=== PATIENT | female | born 2005 | race Caucasian/White ===

== ENCOUNTER 2025-02-20 06:07 | Emergency (ER) | payer BC, SELFPAY ==
[2025-02-20 06:15] VITALS: BP 125/76; PULSE 58; RESP 16; TEMP 37; O2SAT 97; O2SAT 99
[2025-02-20 06:16] VITALS: BP 125/76; O2SAT 97
--- NOTE | 2025-02-20 06:21 | ED.NAVMDI ---
HPI - Nausea/Vomiting/Diarrhea General Chief complaint: Nausea/Vomiting/Diarrhea Stated complaint: n/v after wisdom teeth removal on 02/18 Time Seen by Provider: 02/20/25 06:30 History of Present Illness HPI Narrative: 19-year-old healthy female presenting 2 days post wisdom teeth extraction with nausea, vomiting and suspected medication side effect. She was prescribed tramadol 50 mg q.6 hours which she has been taking on top of Tylenol and ibuprofen. She thinks the tramadol is causing her feel nauseous and having upset stomach. She has vomited several times but having no abdominal pain. States that she is on a soft diet after the wisdom teeth and her pain is actually well controlled she just feels nauseous at this time. No other symptoms. No fever, chills. No traumatic injuries. Was otherwise in her normal state of health. Patient states she has never had Ultram or strong pain medicines before and did not get any medications for nausea. Related Data Allergies Allergy/AdvReac Type Severity Reaction Status Date / Time No Known Allergies Allergy Verified 02/20/25 06:20 Review of Systems Review of Systems: As reviewed above in HPI All systems reviewed & are unremarkable except as noted in HPI and below Exam Narrative: GENERAL: [Well-appearing, well-nourished, and in no acute distress.] HEAD: [Normocephalic, atraumatic.] EYES: [PERRLA and EOMI.] ENT: Nares clear, no rhinorrhea or epistaxis. Status post extraction of wisdom teeth, areas appear well healing, no erythema, purulence or bleeding. NECK: Supple. CHEST: No respiratory distress ABDOMEN: Nondistended EXTREMITIES: Normal range of motion. [No edema.] SKIN: Warm, dry, no rash. NEURO: [No focal deficits]. Alert and oriented [x3.] PSYCH: [Normal mood and affect.] Course Vital Signs Vital signs: Vital Signs Temperature 37.0 C 02/20/25 06:15 Pulse Rate 58 L 02/20/25 06:15 Respiratory Rate 16 02/20/25 06:15 Blood Pressure 125/76 02/20/25 06:15 Pulse Oximetry 99 02/20/25 06:15 Oxygen Delivery Room Air 02/20/25 06:15 Temperature 37.0 C 02/20/25 06:15 Pulse Rate 65 02/20/25 07:33 Respiratory Rate 17 02/20/25 07:33 Blood Pressure 123/70 02/20/25 07:33 Pulse Oximetry 97 02/20/25 07:33 Oxygen Delivery Room Air 02/20/25 06:15 [facility] Narrative Medical decision making narrative: 19-year-old healthy female presenting 2 days post wisdom teeth extraction with nausea, vomiting and suspected medication side effect. She was prescribed tramadol 50 mg q.6 hours which she has been taking on top of Tylenol and ibuprofen. She thinks the tramadol is causing her feel nauseous and having upset stomach. She has vomited several times but having no abdominal pain. States that she is on a soft diet after the wisdom teeth and her pain is actually well controlled she just feels nauseous at this time. No other symptoms. No fever, chills. No traumatic injuries. Was otherwise in her normal state of health. Patient states she has never had Ultram or strong pain medicines before and did not get any medications for nausea. Patient is well-appearing in no distress. Normal vital signs. No fever tachycardia. Dental sites appear well healing. Pain is controlled. Likely medication side effect verses GI upset from viral gastroenteritis less likely. Will give her IV fluids and Zofran as well as some basic laboratory studies being obtained. These labs are unremarkable. She felt better after fluids and Zofran will be prescribed Zofran and instructed cut down on her tramadol dose or omitted entirely for pain is controlled with Tylenol and ibuprofen. Safe for discharge with follow-up as needed. Differential Diagnosis Differential Diagnosis: Likely medication side effect verses GI upset from viral gastroenteritis less likely. Lab Data [facility] Lab Attestation statement: I personally reviewed the patient's lab results. 02/20/25 06:32 02/20/25 06:32 Labs: Lab Results 02/20/25 Range/Units 06:32 WBC 11.8 H (4.5-10.0) K/mm3 RBC 4.41 (4.2-5.4) M/mm3 Hgb 13.4 (12.0-15.0) g/dL Hct 39.2 (37.0-47.0) % MCV 88.9 (80-100) fl MCH 30.4 (26-34) pg MCHC 34.2 (32-36) g/dl RDW 12.6 (11.5-14.5) % Plt Count 271 (150-375) k/mm3 MPV 8.8 (7.4-10.4) fl Immature Gran % (Auto) 0.5 (0-0.5) % Neut % (Auto) 82.2 H (45.5-73.1) % Lymph % (Auto) 12.3 L (18.3-44.2) % [place] % (Auto) 4.1 (2.6-8.5) % Eos % (Auto) 0.5 (0-4.4) % Baso % (Auto) 0.4 (0.2-1.2) % Lymph # (Auto) 1.45 (0.9-3.2) K/mm3 [place] # (Auto) 0.5 (0.1-0.6) K/mm3 Eos # (Auto) 0.1 (0-0.3) K/mm3 Baso # (Auto) 0.1 (0.0-0.1) K/mm3 Abs Immat Gran (auto) 0.06 H (0.00-0.031) K/mm3 Absolute Neuts (auto) 9.7 H (1.3-6.7) K/mm3 Absolute Nucleated RBC 0.000 (0.0-0.012) K/mm3 Nucleated RBC % 0.0 (0.0-0.2) % Sodium 137 (137-145) mmol/L Potassium 3.6 (3.4-5.0) mmol/L Chloride 105 (98-107) mmol/L Carbon Dioxide 21 L (22-30) mmol/L Anion Gap 11 (4-12) mmol/L BUN 11 (7-17) mg/dL Creatinine 0.83 (0.7-1.0) mg/dL Estim Creat Clear Calc 84 ml/min Estimated GFR > 60 (59 - ) Glucose 114 H (65-110) mg/dL Calcium 9.3 (8.4-10.2) mg/dL Discharge Plan Discharge Clinical Impression: Drug-induced nausea and vomiting Patient Disposition: Home Condition: Stable Instructions: Antibiotic Form Additional Instructions: Symptoms consistent with medication induced nausea and vomiting from the high-dose Ultram every 6 hours. Would recommend cutting down this dose to half a tablet every 6 hours or spaced out even further or if tolerating pain can just use Tylenol and ibuprofen. We have prescribed you Zofran as needed. Return wity any emergent concerns. Patient Language: Thai Prescriptions: New ondansetron 4 mg tablet,disintegrating 4 mg PO Q8H PRN (Reason: nausea and vomiting) Qty: 20 0RF ondansetron 4 mg tablet,disintegrating 4 mg PO Q8H PRN (Reason: nausea and vomiting) Qty: 20 0RF Follow-up/Referrals: NON-NURSING STAFF,ADMISSIONS [Nursing Provider Deficiency, Nursing] Time of Disposition: 07:06
[2025-02-20 06:30] VITALS: PULSE 49; RESP 11; O2SAT 100
[2025-02-20 06:31] VITALS: BP 116/63; PULSE 43; RESP 9; O2SAT 100
[2025-02-20] MEDS: DEXTROSE 5%/LACTATED RINGERS 1,000 ML 1000 ML IV CONT (06:31)
[2025-02-20] MEDS: ONDANSETRON INJ 4 MG/2 ML VIAL IV PUSH (06:31)
[2025-02-20 06:40] LABS: Hematocrit 39.2 % (37.0-47.0); Hemoglobin 13.4 g/dL (12.0-15.0); Immature Granulocyte Percent A 0.5 % (0-0.5); Lymphocytes Absolute Auto 1.45 K/mm3 (0.9-3.2); Mean Corpuscular HGB Conc 34.2 g/dl (32-36); Mean Corpuscular Hemoglobin 30.4 pg (26-34); Mean Corpuscular Volume 88.9 fl (80-100); Nucleated Red Blood Cells Absolute Auto 0.000 K/mm3 (0.0-0.012); Nucleated Red Blood Cells Perc 0.0 % (0.0-0.2); Platelet Count Result 271 k/mm3 (150-375); Red Blood Count 4.41 M/mm3 (4.2-5.4); White Blood Count 11.8 K/mm3 (4.5-10.0)
--- OUTSIDE RECORDS SUMMARY | 2025-02-20 06:52 | XMS_ITS | Clinical Summary ---
Author Organization [facility] Address [address] [place] [id number] Care Team Providers Care Mounter Flutes And Piccolos Name Role Phone Kenya Lincoln Primary Care Provider [phone] Allergies No known active allergies Medications busPIRone (BUSPAR) 5 MG tabletIndicatio ns:Anxiety Take 1 tablet (5 mg total) by mouth 2 (two) times daily. 180 tablet 3 11/05/2024 Active norethindrone-e thinyl estradiol (BLISOVI FE 03/25) 1-20 MG-MCG tabletIndicatio ns:Dysmenorrhea ,Menorrhagia with irregular cycle TAKE 1 TABLET BY MOUTH DAILY. SKIP PLACEBO 84 tablet 3 12/10/2024 Active Active Problems Problem Noted Date Diagnosed Date Adult BMI 25.0-25.9 kg/sq m 10/22/2024 Anxiety 10/28/2019 Dysmenorrhea 10/07/2018 Menorrhagia with irregular cycle 10/07/2018 Resolved Problems Problem Noted Date Diagnosed Date Resolved Date Need for HPV vaccination 01/16/2020 Need for Menactra vaccination 10/28/2019 11/15/2019 Sports physical 10/07/2018 10/22/2024 BMI pediatric, 5th percentil e to less than 85% for age 0810/07/2018 10/22/2024 Encounters Date Type Department Care Team Description 12/09/2024 Results Follow-Up [facility] [address] [address] Kenya Lincoln FNP Cytopath Cerv/Vag Thin Layer, HUMAN PAPILLOMAVIRUS, HIGH-RISK TYPES 12/02/2024 9:52 AM CDT - 12/02/2024 11:59 PM CDT Hospital Encounter [facility] [address] [place] [address] Kenya Lincoln FNP Discharge Disposition: Home or Self Care (Routine Discharge) 12/02/2024 9:00 AM CDT Office Visit [facility] Family [facility] Internal Medicine [address] [address] Kenya Lincoln FNP Gold Leaf Printer Exam (Patient presenting to the office today for CRISIS CLINICIAN exam- reports this is her first PAP - ) 12/02/2024 Travel from Last 3 Months Immunizations Immunization Administration Dates Next Due HPV GARDASIL 9-VALENT 10/22/2024,10/28/2019,09/05 Meningococcal (Menactra) 12/21/2020,10/28/2019 PFIZER COVID-19 (ORIGINAL FO RMULATION, PURPLE CAP) mRNA, LNP-S, PF, 30 MCG/0.3 ML DOSE 07/03/2020 Tdap (Adacel) 10/22/2024 Family History Medical History Relation Comments Drug Abuse Father Hypertension Father Heart Maternal Grandfather No Known Problems Mother Relation Status Comments Father Maternal Grandfather Mother Alive Social History Tobacco Use Types Packs/Day Years Used Date Smoking Tobacco: Never Smokeless Tobacco: Never Tobacco Cessation:Counseling Given: Not Answered Alcohol Use Standard Drinks/Week Comments No 0 (1 standard drink = 0.6 oz pur e alcohol) AUDIT-C Answer Date Recorded Frequency of Alcohol Consumption Never 10/02/2018 Average Number of Drinks Not on file 019 Frequency of Binge Drinking Not on file 09/05 PHQ-2 Answer Date Recorded Patient Health Questionnaire-2 Score 0 10/22/2024 Comments No Sex and Gender Information Value Date Recorded Sex Assigned at Female 10/12/2023 3:40 PM CDT Legal Sex Female 9:20 AM CDT Gender Identity Female 10/12/2023 3:40 PM CDT Sexual Orientation Straight 10/12/2023 3: 40 PM CDT Last Filed Vital Signs Vital Sign Reading Time Taken Comments Blood Pressure 102/70 12/02/2024 9:06 AM CDT Pulse 71 12/02/2024 9:06 AM CDT Temperature 36.6 C (97.9 F) 12/02/2024 9:06 AM CDT Respiratory Rate 16 12/02/2024 9:06 AM CDT Oxygen Saturation 99% 12/02/2024 9:06 AM CDT Inhaled Oxygen Concentration - - Weight 67.1 kg (147 lb 14.4 oz) 12/02/2024 9:06 AM CDT Height 165.1 cm (5' 5) 12/02/2024 9:06 AM CDT Body Mass Index 24.61 12/02/2024 9:06 AM CDT Plan of Treatment Health Maintenance Due Date Last Done Comments Hepatitis C 2021 Hepatitis B Vaccines (1 of 3 - 19+ 3-dose series) 2022 Influenza Adult (#1) 2024 Chlamydia Screening Females ages 16-24 10/22/2025 Postponed from 03/13 (Patient Refused) Meningococcal B Vaccine (1 o f 2 - Standard) 10/22/2025 Postponed from 03/13 (Future Appointment) Annual Physical 12/02/2025 12/02/2024, 10/28/2019, 10/02/2018 COVID-19 Vaccine (3 - 2024-2 6 season) 2025 07/03/2020, 06/04/2020 Postponed from 11/04/2024 (Future Appointment) Cervical Cancer Screening Pa p Smear (Age 21 to 29) Every 3 Years 12/03/2027 12/02/2024, 12/02/2024 Cervical Cancer Screening 12/03/2027 DTaP, Tdap and Td Vaccines ( 2 - Td or Tdap) 10/22/2034 10/22/2024 Meningococcal Vaccine Completed 12/21/2020 , 10/28/2019 HPV Vaccines Completed 10/22/2024, 10/28/2019, 10/02/2018 PHQ-2 (Physician [place]) Completed 10/22/2024 Hepatitis A Vaccines Aged Out No long er eligible based on patient's age to complete this topic Pneumococcal Vaccine: Pediatrics (0 to 5 Years) and At-Risk Patients (6 to 49 Years) Aged Out No longer eligible b ased on patient's age to complete this topic RSV Immunizations Under 20 Months Aged Out No longer eligible b ased on patient's age to complete this topic Procedures Procedure Name Priority Date/Time Associated Diagnosis Comments HC HPV AMP Routine 12/02/2024 12:00 PM CDT CYTOPATH CERV/VAG THIN LAYER Routine 12/02/2024 12:00 AM CDT Well woman exam with routine gynecological exam Encounter for Papanicolaou smear for cervical cancer screening from Last 3 Months Results * HUMAN PAPILLOMAVIRUS, HIGH-RISK TYPES (12/02/2024 12:00 PM CDT) SPEC DESCRIPTION CERVIX 12/04/19 11:42 AM CDT [facility] HPV DNA HIGH RISK NEGATIVE NEGATIVE 12/04/2024 10:49 AM CDT [facility] Comment:SEE CYTOLOGY REPORT 12/02/2024 12:0 0 PM CDT us Kenya ZIEGLER PATHOLOGY/CYTOLOGY ORDERABLES Final Result [facility] [address] [place] [address], * Cytopath Cerv/Vag Thin Layer (12/02/2024 12:00 AM CDT) THIN PREP PAP [facility] [address] [place] [address] Department of Pathology Pathology Report CERVICAL/VAGINAL PAP SMEAR REPORT Name: BOUCHRA ALEJANDRO Age: 1 2005 (Age: 19) Location: [facility] Sex: F Collected Date: 12/02/2024 [facility] #: [id number] Date Received: 12/03/2024 Date Reported: 12/09/2024 Provider: KENYA SUAREZP-C INTERPRETATION CERVICAL/ENDOCERVI GENE: SATISFACTORY FOR EVALUATION. ENDOCERVICAL/TRANS FORMATION ZONE COMPONENT PRESENT. NEGATIVE FOR INTRAEPITHELIAL LESION OR MALIGNANCY. NEGATIVE FOR HIGH RISK HPV. The FDA approved Aptima HPV assay is an in vitro nucleic acid amplification test for the qualitative detection of E6/E7 viral messenger RNA (mRNA) from 14 high-risk types of human papillomavirus (HPV) in cervical specimens. The high-risk HPV types detected by the assay include: 16,18,31,33,35,39, 45,51,52,56,58,59, 66, and 68. Electronically Signed Out By TRANG Rhoades (ASCP) CLINICAL HISTORY Z01.419 WELL WOMAN EXAM WITH ROUTINE GYNECOLOGICAL EXAM Z12.4 ENCOUNTER FOR PAPANICOLAOU SMEAR FOR CERVICAL CANCER SCREENING SCREENING PAP ThinPrep Pap Test with HR HPV testing requested. Date of Last Menstrual Period: NOT GIVEN Menstrual Status: Menstrual Suppression Contraceptive History: Control SPECIMEN SUBMITTED CERVICAL/ENDOCERVI GENE Specimen Received:1 Thin Prep Vial, Image Assisted Pap (SMD) Please note: The Pap smear is not a diagnostic test. It is a screening test. Negative results on combined screening (Pap test and HPV-DNA) have a high negative predictive value (99.1-100 percent) for cervical cancer. The pap test is not effective in detecting cervical adenocarcinoma. [facility] 12/02/2024 12/03/2024 10: 18 AM CDT Comment:CERVICAL/ENDOCERVICA L Kenya ZIEGLER PATHOLOGY/CYTOLOGY ORDERABLES Final Result Performing Organization Address City/State/[facility] Co de Phone Number [facility] [address] [place] [address], from Last 3 Months Insurance [facility] Care Teams Mounter Flutes And Piccolos Relationship Specialty Start Date End Date Kenya Lincoln FNP [address] [place] [address] [phone] PCP - General Nurse Practitioner Family 10/02/18
--- OUTSIDE RECORDS SUMMARY | 2025-02-20 06:52 | XMS_ITS | Clinical Summary ---
Author Organization [facility] [employer] Address [address] [place] [address] Care Team Providers Care Sales Manager Name Role Phone Danii Lincoln APRN-BIOLOGICS SPECIALIST Primary Care Provider [phone] [facility],non-owned Affiliates and Associated Physician Practices is amultiple site organization consisting of ambulatory clinics and hospital sitesin [place], [place], [place] and [place]. This disclosure is being madepursuant to the Care Everywhere program and may not contain all information available regarding this patient. Last updated 17.[facility] [employer] Allergies No known active allergies Medications * Be aware that medications may not be up to date on this document. Alwaysverify current medications with the patient. busPIRone (BUSPAR) 5 MG tablet Take 5 mg by mouth 2 times daily 01/16/2020 Active norethin-eth estradiol-FE (LOESTRIN FE 03/25; JUNEL FE 03/25; MICROGESTIN FE 03/25) 1-20 MG-MCG tablet Take 1 tablet by mouth once daily 01/16/2020 Active Active Problems No known active problems Social History Tobacco Use Types Packs/Day Years Used Date Smoking Tobacco: Never Smokeless Tobacco: Never Alcohol Use Standard Drinks/Week Comments Never 0 (1 standard drink = 0.6 oz pur e alcohol) Comments No Sex and Gender Information Value Date Recorded Sex Assigned at Not on file Legal Sex Female 10:38 AM DISABILITY REPRESENTATIVE Gender Identity Not on file Sexual Orientation Not on file Last Filed Vital Signs Vital Sign Reading Time Taken Comments Blood Pressure 118/64 08/12/2020 11:21 AM CDT Pulse 78 08/12/2020 11:21 AM CDT Temperature 36.5 C (97.7 F) 08/12/2020 11:21 AM CDT Respiratory Rate 16 08/12/2020 11:21 AM CDT Oxygen Saturation 99% 04/28/2020 4:39 PM DISABILITY REPRESENTATIVE Inhaled Oxygen Concentration - - Weight 56.7 kg (125 lb) 09/22/2020 2:14 PM CDT Height 165.1 cm (5' 5) 09/22/2020 2:14 PM CDT Body Mass Index 20.8 09/22/2020 2:14 PM CDT Plan of Treatment Health Maintenance Due Date Last Done Comments HIV SCREENING 2018 HPV VACCINE (1 - 3-dose series) 2018 CHLAMYDIA/GONORRHEA SCREENING 2019 MENINGOCOCCAL (Group B) VACC INE SHARED DECISION-MAKING (1 of 2 - Standard) 2019 HEPATITIS C SCREENING 03/08/2021 DTAP/TDAP/TD VACCINES (1 - Tdap) 2022 HEPATITIS B VACCINE (1 of 3 - 19+ 3-dose series) 2022 DEPRESSION SCREENING 03/06/2024 COVID-19 VACCINE (1 - 2024-2 6 season) 2024 INFLUENZA VACCINE (#1) 2024 ZOSTER VACCINE (1 of 2) 2053 HIB VACCINE Aged Out No longer eligi ble based on patient's age to complete this topic MENINGOCOCCAL GROUPS A/C/Y/W VACCINE Aged Out No longer eligible b ased on patient's age to complete this topic PNEUMOCOCCAL VACCINE Aged Out No long er eligible based on patient's age to complete this topic Insurance Care Teams Sales Manager Relationship Specialty Start Date End Date Danii Lincoln APRN-JANINA [address] [place] [id number] PCP - General Nurse Practitioner 08/12/20
--- OUTSIDE RECORDS SUMMARY | 2025-02-20 06:52 | XMS_ITS | Clinical Summary ---
Author Organization [address] Address [address] [place] [id number] Care Team Providers Care Sous Chef Kitchen Manager Name Role Phone Danii Lincoln NP Primary Care Provider Allergies No known active allergies Medications Blisovi Fe 03/25, 28, 1 mg-20 mcg (21)/75 mg (7) per tablet TAKE 1 TABLET BY MOUTH DAILY. SKIP PLACEBO Active albuterol HFA (PROVENTIL HFA,VENTOLIN HFA,PROAIR HFA) 90 mcg/actuation inhalerIndicati ons:Bronchitis Inhale 2 puffs every 6 (six) hours as needed for wheezing or shortness of breath 1 each 3 Active Additional Information Patient not taking.Reported on 12/05/2024 benzonatate (TESSALON) 200 mg capsuleIndicati ons:Bronchitis Take 1 capsule (200 mg total) by mouth 3 (three) times a day as needed for cough 30 capsule 3 Active Additional Information Patient not taking.Reported on 12/05/2024 methylPREDNISol one (Medrol, Idris,) 4 mg DosepackIndicat ions:Bronchitis follow package directions 1 packet 3 Active Additional Information Patient not taking.Reported on 12/05/2024 busPIRone (BUSPAR) 5 mg tablet Take 1 tablet (5 mg total) by mouth 2 (two) times a day 0 Active Active Problems No known active problems Encounters Date Type Department Care Team Description 12/05/2024 12:15 PM CDT Office Visit [facility] at [address] [phone] Wen Concepcion PA Nasopharyngitis (Primary Dx) from Last 3 Months Social History Tobacco Use Types Packs/Day Years Used Date Smoking Tobacco: Never Assessed Comments Unknown Sex and Gender Information Value Date Recorded Sex Assigned at Not on file Legal Sex Female 8:46 PM COLLEGE ADVISOR Gender Identity Female 01/27/2023 8:50 PM COLLEGE ADVISOR Sexual Orientation Straight 01/27/2023 8: 50 PM COLLEGE ADVISOR Last Filed Vital Signs Vital Sign Reading Time Taken Comments Blood Pressure 116/70 12/05/2024 12:14 PM CDT Pulse 94 12/05/2024 12:14 PM CDT Temperature 36.8 C (98.2 F) 12/05/2024 12:14 PM CDT Respiratory Rate 16 12/05/2024 12:14 PM CDT Oxygen Saturation 98% 12/05/2024 12:14 PM CDT Inhaled Oxygen Concentration - - Weight 66.7 kg (147 lb) 12/05/2024 12:14 PM CDT Height 165.1 cm (5' 5) 01/28/2023 4:58 PM COLLEGE ADVISOR Body Mass Index 24.46 01/28/2023 4:58 PM COLLEGE ADVISOR Plan of Treatment Health Maintenance Due Date Last Done Comments Cervical Cancer Screening 2003 Depression Screening 2003 Hepatitis C Screening 2003 Varicella Vaccines (1 of 2 - 13+ 2-dose series) 2016 Meningococcal B Vaccine (1 o f 2 - Standard) 2019 HPV Vaccines (3 - 3-dose series) 01/20/2020 10/28/2019, 10/02/2018 Hepatitis B Screening 2021 Regular Well Visit/Exam 18-64 2021 Covid-19 Vaccine (3 - 2024-2 6 season) 2024 07/03/2020, 06/04/2020 Influenza Vaccine (#1) 2024 DTaP/Tdap/Td Vaccine (2 - Td or Tdap) 10/22/2034 10/22/2024 Meningococcal Vaccine Completed 12/21/2020 , 10/28/2019 Pneumococcal vaccine <65 Aged Out No longer eligible based on patient's age to complete this topic Procedures Procedure Name Priority Date/Time Associated Diagnosis Comments POC INFLUENZA A/B, COVID-19 ANTIGEN Routine 12/05/2024 12:34 PM CDT Nasopharyngitis POCT RAPID STREP Routine 12/05/2024 12:2 6 PM CDT Nasopharyngitis from Last 3 Months Results * POC Influenza A/B, COVID-19 antigen (12/05/2024 12:34 PM CDT) Influenza A Ag, POC Negative Negative [facility] Influenza B Ag, POC Negative Negative [facility] COVID-19 Ag POC Presumptive Negative Presumptive Negative, Invalid [facility] Nasal 12/05/2024 12:3 4 PM CDT Wen TORRES POINT OF CARE TEST ORDER AKUA Final Result Performing Organization Address City/State/[facility] Co de Phone Number [facility] [address] * POCT rapid strep A (12/05/2024 12:26 PM CDT) Rapid Strep A, POC Negative Negative Swab 12/05/2024 12:2 6 PM CDT Wen TORRES POINT OF CARE TEST ORDER AKUA Final Result from Last 3 Months Insurance [place] Care Teams Sous Chef Kitchen Manager Relationship Specialty Start Date End Date Danii Lincoln, HYDRO ELECTRIC STATION OPERATOR [address] [place] [id number] PCP - General Nurse Practitioner 01/28/23
[2025-02-20 07:02] LABS: Anion Gap 11 mmol/L (4-12); Blood Urea Nitrogen 11 mg/dL (7-17); Calcium 9.3 mg/dL (8.4-10.2); Carbon Dioxide 21 mmol/L (22-30); Chloride 105 mmol/L (98-107); Estimated CRCL calculation 84 ml/min; Estimated Glomerular Filt Rate > 60; Glucose 114 mg/dL (65-110); Potassium 3.6 mmol/L (3.4-5.0); Sodium 137 mmol/L (137-145)
[2025-02-20 07:33] VITALS: BP 123/70; PULSE 65; RESP 17; O2SAT 97
== END 2025-02-20 07:35 | disposition home or self-care (01) ==
LOC: ANHED 06:51
PROVIDERS: Emergency Provider Student in an Organized Health Care Education/Training Program; PCP Nurse Practitioner Family
DX: R11.2 Nausea with vomiting, unspecified (principal); T40.425A Adverse effect of tramadol, initial encounter
CPT/HCPCS: 36415; 80048; 85025; 96361; 96374; 99284; J2405; J7121